=== PATIENT | female | born 1990 | race African-American/Black ===

== ENCOUNTER 2017-08-20 21:55 | Emergency (ER) | payer OTHER ==
[~2017-08-20 21:55] MED LIST: PREN29TA PO
--- NOTE | 2017-08-20 23:17 | PD ---
HPI Chief Complaint 39 weeks and 3 days Bloody, mucoid discharge 1 day Date Seen: Aug 20, 2017 Time Seen: 23:00 Travel History International Travel<30 Days: No Contact w/Intl Traveler<30Days: No Known Affected Area: No History of Present Illness HPI Pt is a 26 yo at 39 weeks and 3 days. Pt reports bloody mucoid discharge noted at about 21:00. Feels irregular contractions. Active movements. No fevers or chills. EDC 08-24-2017, care with Shae Leonard. h/o anemia. GBS negative. Weeks Gestation: 39 Para: 4 : 9 History Past Medical History Narrative Medical Anemia Obstetric History Obstetric History 4 prior term deliveries, vaginally Past Surgical History Surgical History: No Previous Surgery Family History Family History: Negative Social History Alcohol Use: No Tobacco Use: No Substance Abuse: No Allergies-Medications (Allergen,Severity, Reaction): Coded Allergies: latex (Unverified Allergy, Severe, Hives, 06/01/17) Home Meds Reported Medications Vit-Iron Carbonyl ( Plus Iron 29-1 mg) 1 Tab Tab, 1 TAB PO DAILY for Nutritional Supplement, #30 TAB 0 Refills 08/30/16 Review of Systems Except as stated in HPI: all other systems reviewed are Neg Physical Exam Narrative GENERAL: Well-nourished, well-developed patient. SKIN: Warm and dry. HEAD: Normocephalic and atraumatic. EYES: No scleral icterus. No injection or drainage. ENT: No nasal drainage noted. Mucous membranes pink. Airway patent. NECK: Supple, trachea midline. No JVD. CARDIOVASCULAR: Regular rate and rhythm without murmurs, gallops, or rubs. RESPIRATORY: Breath sounds equal bilaterally. No accessory muscle use. BREASTS: Bilateral exam showed no masses , no retractions, no nipple discharge. ABDOMEN/GI: Abdomen soft, non-tender, bowel sounds present, no rebound, no guarding Gravid to [39] weeks size Fundal Height: [39] GENITOURINARY: External Genitalia: intact and normal in appearance Cervix: [soft] NO BLOOD NOTED ON EXAMINING FINGER Dilatation: [1-2cm] Effacement: [60%] Station: [-2] Presentation: [vertex] Membranes: [intact] Uterine Contractions: [irregular] FHT's: Category: [Cat 1] Baseline: [130s] Reactive: [-] Variability: [moderate] Decels: [none] EXTREMITIES: No cyanosis or edema. BACK: Nontender without obvious deformity. No CVA tenderness. NEUROLOGICAL: Awake and alert. Motor and sensory grossly within normal limits. Five out of 5 muscle strength in all muscle groups. Normal speech. MDM Plan Pt is a 26 yo at 39 weeks and 3 days. Pt presents with h/o mucoid discharge, and has been traiged and found not to be in labor. No cervical change since last exam on 08/16/2017 Diagnosis Diagnosis: Primary Impression: with 39 completed weeks gestation Additional Impression: False labor Disposition: 01 DISCHARGE HOME Condition: Good Doug Carrasco MD Aug 20, 2017 23:17
== END 2017-08-20 23:20 | disposition home or self-care (01) ==
LOC: HOBED 21:55
DX: O47.1 False labor at or after 37 completed weeks of gestation (principal); Z3A.39 39 weeks gestation of pregnancy
CPT/HCPCS: 59025

== ENCOUNTER 2017-08-26 13:20 | Emergency (ER) | payer OTHER ==
[2017-08-26] MEDS ORDERED: LACTATED RINGER'S 1000 ML INJ 1,000 ML IV SCH (14:35)
--- NOTE | 2017-08-26 14:43 | PD ---
HPI Chief Complaint Syncope Date Seen: Aug 26, 2017 Time Seen: 14:00 Travel History International Travel<30 Days: No Contact w/Intl Traveler<30Days: No Known Affected Area: No History of Present Illness HPI Mrs. stokes is a 26-year-old G9. 4 at 30 weeks and 2 days presenting to the OB in with complaints of syncope. She states that roughly 2 hours ago after eating lunch she arose and walked across the room and while she was walking she suddenly felt weak and lightheaded and subsequently "passed out." She states that she felt her side, denying any head or abdominal trauma. She denies any musculoskeletal pain associated with the fall. She is unsure how long she was down, and isn't sure if she lost consciousness. Denies urinary or bowel incontinence during the episode. After her boyfriend helped her up, she drank some water and shortly thereafter vomited. She is currently complaining of a headache, nausea, and feeling weak. She states that she has a known history of iron deficiency anemia for which she takes iron both during and before . She states that while in middle school she had numerous syncopal episodes with no known diagnosis other than the anemia. She denies chest pain, shortness of breath, decreased movement, gush of fluid, vaginal bleeding. She is experiencing occasional contractions, but they are not regular with no shortening of the interval in between. Of note she is also complaining of a rash on her right arm. She states that last night she began to experience some discomfort in the right tricep area. When she awoke this morning there was a vesicular rash as well as pain in her right axilla. She describes the rash as burning and tingling in nature, with no bleeding or purulent discharge. She states that she is having a similar rash on her back during a prior in which she was treated with antibiotics. She states she did have chickenpox as a child. Weeks Gestation: 40 Para: 4 : 9 History Past Medical History Narrative Medical Iron deficiency anemia Syncopal episodes as adolescent Past Surgical History Narrative Surgical No surgical history Family History Narrative Family History Iron deficiency anemia in her mother Hypertension in her father Social History Narrative Social History Lives with her 4 children and denies alcohol tobacco or drug use Allergies-Medications (Allergen,Severity, Reaction): Coded Allergies: latex (Unverified Allergy, Severe, Hives, 06/01/17) Home Meds Active Scripts Ondansetron Odt (Ondansetron Odt) 4 Mg Tab, 4 MG SL Q6HR Y for Nausea/Vomiting, #6 TAB 0 Refills Prov:Subhash Miguel MD R1 08/26/17 Valacyclovir (Valacyclovir) 500 Mg Tab, 500 MG PO BID for Mgmt Viral Infection, #20 TAB 0 Refills Prov:Subhash Miguel MD R1 08/26/17 Reported Medications Vit-Iron Carbonyl ( Plus Iron 29-1 mg) 1 Tab Tab, 1 TAB PO DAILY for Nutritional Supplement, #30 TAB 0 Refills 08/30/16 Review of Systems General / Constitutional: No: Fever, Chills Eyes: No: Blurred Vision HENT: Headaches Cardiovascular: Syncope, No: Chest Pain or Discomfort, Palpitations Respiratory: No: Short of Breath Gastrointestinal: Nausea, Vomiting, No: Abdominal Pain Skin: Rash Neurologic: Weakness, Syncope Physical Exam Narrative GENERAL: Well-nourished, well-developed patient. SKIN: Warm and dry. 3 x 1 cm vesicular rash in a cluster on the right tricep area. Vesicles appear white with no purulent discharge or bleeding. Roughly 8 x 5 cm (approximately the size of a playing card) area of induration and erythema with mild hyperpigmentation surrounding the vesicular cluster. Rash is tender to palpation. Right axillary lymphadenopathy appreciated HEAD: Normocephalic and atraumatic. EYES: No scleral icterus. No injection or drainage. ENT: No nasal drainage noted. Mucous membranes pink. Airway patent. NECK: Supple, trachea midline. No JVD. CARDIOVASCULAR: Regular rate and rhythm without murmurs, gallops, or rubs. RESPIRATORY: Breath sounds equal bilaterally. No accessory muscle use. BREASTS: Bilateral exam showed no masses , no retractions, no nipple discharge. ABDOMEN/GI: Abdomen soft, non-tender, bowel sounds present, no rebound, no guarding Gravid to 40 weeks size GENITOURINARY: External Genitalia: intact and normal in appearance Cervix: Posterior Dilatation: 2 cm Effacement: Thick Station: -3 Membranes: Intact Uterine Contractions: Irregular, every 7-10 minutes FHT's: Category: II Baseline: 140 Reactive: nonreactive Variability: Minimal Decels: None EXTREMITIES: No cyanosis or edema. BACK: Nontender without obvious deformity. No CVA tenderness. NEUROLOGICAL: Awake and alert. Motor and sensory grossly within normal limits. Five out of 5 muscle strength in all muscle groups. Normal speech. MDM Interpretation(s) 26-year-old female at 40 weeks and 2 days presented to the ED with syncopal episode, also found to have vesicular rash as well as a category II tracing due to nonreactive strip. Plan 1. Syncope -Known history of iron deficiency anemia -CBC, CMP ordered, lactated Ringer's IV fluids -We'll monitor for now and follow-up labs 2. Category 2 tracing -Minimal variability, non-reactive strip -Giving IV fluids as described above -With patient being at 40 weeks and 2 days, will consider AROM and inducing labor if strip does not improve over the next several hours 3. Rash -Unknown etiology at this point. Could be viral or bacterial, but considering vesicular nature and patient's description of pain as well as known history of chickenpox - shingles is on the differential -CBC with differential ordered, will follow up Seen and discussed with Dr. Whelan Addendum: After 1 L of fluids, heart tracing improved markedly. Moderate variability , reactive strip with accelerations. Patient is tolerating contractions well. CBC showing no leukocytosis, mild anemia with hemoglobin of 10.8. Syncopal episode thought to be due to orthostatic hypotension versus IVC compression with no further workup needed at this time Discharging home with prescription for Zofran as well as Valtrex for what is likely shingles rash. Patient instructed to return to ED if rash worsens or systemic symptoms develop. Diagnosis Diagnosis: Primary Impression: syncope at 40 weeks gestation Additional Impression: Vesicular rash Disposition: 01 DISCHARGE HOME Condition: Good Scripts Ondansetron Odt (Ondansetron Odt) 4 Mg Tab 4 MG SL Q6HR Y for Nausea/Vomiting, #6 TAB 0 Refills Prov: Subhash Miguel MD R1 08/26/17 Valacyclovir (Valacyclovir) 500 Mg Tab 500 MG PO BID for Mgmt Viral Infection, #20 TAB 0 Refills Prov: Subhash Miguel MD R1 08/26/17 Subhash Miguel MD R1 Aug 26, 2017 14:43
[2017-08-26] MEDS ORDERED: ONDANSETRON HCL 4 MG/2 ML VIAL IV PUSH ONE (14:45)
[2017-08-26] MEDS ORDERED: ACETAMINOPHEN 325 MG TAB PO PRN (15:00)
[2017-08-26 15:32] LABS: AUTOMATED NEUTROPHIL # 6.4 TH/MM3 (1.8-7.7); BASOPHIL # 0.1 TH/MM3 (0-0.2); BASOPHIL % 0.6 % (0.0-2.0); EOSINOPHIL % 0.5 % (0.0-4.0); HEMATOCRIT 34.4 % (35.0-46.0); LYMPH % 26.3 % (9.0-44.0); LYMPHOCYTE # 2.6 TH/MM3 (1.0-4.8); MEAN CELL VOLUME 77.1 FL (80.0-100.0); MEAN CORPUSCULAR HEMOGLOBIN 24.3 PG (27.0-34.0); MEAN CORPUSCULAR HGB CONC 31.6 % (32.0-36.0); MONO % 6.3 % (0.0-8.0); NEUT % 66.3 % (16.0-70.0); PLATELET COUNT 195 TH/MM3 (150-450); RED BLOOD COUNT 4.46 MIL/MM3 (4.00-5.30); WHITE BLOOD COUNT 9.7 TH/MM3 (4.0-11.0)
[2017-08-26 15:34] LABS: HEMO FLAGS AUTO DIFF
[2017-08-26 15:40] LABS: BACTERIA, URINE OCC /hpf; BLOOD, URINE NEG (NEG); COMMENT (UR) CULT NOT INDICATED; CULTURE IF INDICATED CULT NOT INDICATED; GLUCOSE,URINE NEG (NEG); KETONE, URINE NEG (NEG); NITRITE,URINE NEG (NEG); PH, URINE 6.5 (5.0-8.5); SQUAMOUS EPITHELIAL CELL URINE 8 /hpf (0-5); URINE COLOR YELLOW (YELLW/STRAW)
[2017-08-26] MEDS ORDERED: VALA500T PO (15:48)
[2017-08-26] MEDS ORDERED: ONDA4TAB7 SL (15:48)
[2017-08-26 15:53] LABS: ALT (GPT) 19 U/L (10-53); ANION GAP 10 MEQ/L (5-15); AST (GOT) 26 U/L (15-37); BICARBONATE 23.2 MEQ/L (21.0-32.0); BLOOD UREA NITROGEN 5 MG/DL (7-18); CHLORIDE 104 MEQ/L (98-107); GLOMERULAR FILTRATION RATE 132 ML/MIN (>89); POTASSIUM 4.2 MEQ/L (3.5-5.1); SODIUM (NA) 137 MEQ/L (136-145)
[2017-08-26 15:55] LABS: ALKALINE PHOSPHATASE 218 U/L (45-117)
[2017-08-26 16:02] LABS: BANDS 1 % (0-6); METAMYELOCYTES 1 % (0-1); NEUTROPHIL # MANUAL DIFF 6.7 TH/MM3 (1.8-7.7); POLYS (SEG NEUTROPHILS) 66 % (16-70); PROMYELOCYTES 1 % (0-0); WBC DIFF SAMPLE 100
[2017-08-26 16:03] LABS: SCAN/DIFF FINAL DIFF MANUAL
[2017-08-31 13:58] LABS: BATH SALTS (MDPV) UR NEG (NEG); ECSTASY (MDMA) UR NEG (NEG); HEROIN (6-ACETYLMORPHINE) UR NEG (NEG); K2 SPICE UR NEG (NEG); OBGABAPENTIN UR NEG (NEG); OBMETHADONE UR NEG (NEG); PHENCYCLIDINE URINE NEG (NEG)
[2017-08-31 13:59] LABS: OBHYDROMORPHONE U NEG (NEG)
== END 2017-08-26 16:18 | disposition home or self-care (01) ==
LOC: HOBED 13:20
DX: O99.013 Anemia complicating pregnancy, third trimester (principal); D50.9 Iron deficiency anemia, unspecified; R55 Syncope and collapse; R21 Rash and other nonspecific skin eruption; Z3A.40 40 weeks gestation of pregnancy
CPT/HCPCS: 59025; 80053; 80307; 81001; 85007; 85027; 96361; 96374; G0481; J2405; J7120

== ENCOUNTER 2017-08-27 13:52 | Inpatient (IN) | payer OTHER ==
[2017-08-27] VITALS (73 sets, daily range): BP systolic 98–144; BP diastolic 37–85; PULSE 73–134; RESP 16–18; TEMP 97.7–98.8; O2SAT 100
[~2017-08-27 13:52] MED LIST changes: +ONDA4TAB7 SL; +VALA500T PO
[2017-08-27] MEDS ORDERED: LACTATED RINGER'S 1000 ML INJ 1,000 ML IV PRN (14:32)
[2017-08-27] MEDS ORDERED: LACTATED RINGER'S 1000 ML INJ 1,000 ML IV SCH (14:32)
[2017-08-27] MEDS ORDERED: MINERAL OIL 10 ML VIAL TOPICAL PRN (14:45)
[2017-08-27] MEDS ORDERED: LIDOCAINE HCL 1% 50 ML VIAL I-DERMAL PRN (14:45)
[2017-08-27] MEDS ORDERED: SODIUM CHLORID 0.9% 500 ML INJ 500 ML IV PRN (14:45)
[2017-08-27] MEDS ORDERED: LIDOCAINE HCL 1% 50 ML VIAL INFIL PRN (14:45)
[2017-08-27] MEDS ORDERED: OXYTOCIN 30 UNITS-500ML PREMIX 500 ML IV ONE (14:45)
[2017-08-27] MEDS ORDERED: CITRIC ACID-SODIUM CITRATE LIQ 30 ML UDC PO SCH (14:45)
[2017-08-27] MEDS ORDERED: ONDANSETRON HCL 4 MG/2 ML VIAL IV PUSH PRN (14:45)
[2017-08-27] MEDS ORDERED: SODIUM CHLOR 0.9% 1000 ML INJ 1,000 ML IV PRN (14:52)
--- NOTE | 2017-08-27 14:52 | HHI.HP ---
History & Physical H&P HPI HPI Chief Complaint Contractions Date Seen: Aug 27, 2017 Time Seen: 14:36 Travel History International Travel<30 Days: No Contact w/Intl Traveler<30Days: No Known Affected Area: No History of Present Illness HPI 26-year-old 9 para 4 SAB 4 at 40 weeks 3 days gestation who notes contractions increasing throughout the day. She denies leakage of fluid or bleeding. Weeks Gestation: 40 Para: 4 : 9 Miscarriage: 4 : 0 History (Limited) History Past Medical History Narrative Medical The patient was diagnosed with shingles yesterday and has been on Valtrex 500 mg twice a day Obstetric History Obstetric History 4 vaginal deliveries ,largest 8 1/2 pounds care with Shae Leonard. She reports no complications. Past Surgical History Surgical History: No Previous Surgery Family History Family History: Negative Social History Alcohol Use: No Tobacco Use: No Substance Abuse: No Allergies-Medications Allergies-Medications (Allergen,Severity, Reaction): Coded Allergies: latex (Unverified Allergy, Severe, Hives, 06/01/17) Home Meds Active Scripts Ondansetron Odt (Ondansetron Odt) 4 Mg Tab, 4 MG SL Q6HR Y for Nausea/Vomiting, #6 TAB 0 Refills Prov:Subhash Miguel MD R1 08/26/17 Valacyclovir (Valacyclovir) 500 Mg Tab, 500 MG PO BID for Mgmt Viral Infection, #20 TAB 0 Refills Prov:Subhash Miguel MD R1 08/26/17 Reported Medications Vit-Iron Carbonyl ( Plus Iron 29-1 mg) 1 Tab Tab, 1 TAB PO DAILY for Nutritional Supplement, #30 TAB 0 Refills 08/30/16 ROS Review of Systems Except as stated in HPI: all other systems reviewed are Neg Physical Exam Physical Exam Narrative GENERAL: Well-nourished, well-developed patient. SKIN: Warm and dry. HEAD: Normocephalic and atraumatic. EYES: No scleral icterus. No injection or drainage. ENT: No nasal drainage noted. Mucous membranes pink. Airway patent. NECK: Supple, trachea midline. No JVD. CARDIOVASCULAR: Regular rate and rhythm without murmurs, gallops, or rubs. RESPIRATORY: Breath sounds equal bilaterally. No accessory muscle use. BREASTS: Bilateral exam showed no masses , no retractions, no nipple discharge. ABDOMEN/GI: Abdomen soft, non-tender, bowel sounds present, no rebound, no guarding Gravid to [-] weeks size Fundal Height: [-39] GENITOURINARY: External Genitalia: intact and normal in appearance BUS glands: [Negative-] Cervix: [-] Dilatation: [4-] Effacement: [-70] Station: [--2] Presentation: [vtx-] Membranes: [intact] Uterine Contractions: [-] FHT's: Category: [2-] Baseline: [150-] Reactive: [-No] Variability: [-] Decels: [-] EXTREMITIES: No cyanosis or edema. Small pustular area in the right tricep BACK: Nontender without obvious deformity. No CVA tenderness. NEUROLOGICAL: Awake and alert. Motor and sensory grossly within normal limits. Five out of 5 muscle strength in all muscle groups. Normal speech. Data Data Data Vital Signs Reviewed: Yes Orders Orders Ob (2e) Additional Admit Info (08/27/17 14:31) Admit To Inpatient (08/27/17 ) Code Status (08/27/17 14:32) Vital Signs (Adult) .Per protocol (08/27/17 14:32) Activity Oob Ad Sarita (08/27/17 14:32) Heart (08/27/17 14:32) Amnioinfusion (08/27/17 14:32) Urinary Catheter Management .ONCE (08/27/17 14:32) Lactated Ringer's 1000 Ml Inj (Lr 1000 M (08/27/17 14:32) Lactated Ringer's 1000 Ml Inj (Lr 1000 M (08/27/17 14:32) Sodium Chlorid 0.9% 500 Ml Inj (Ns 500 M (08/27/17 14:45) Sodium Chlor 0.9% 1000 Ml Inj (Ns 1000 M (08/27/17 14:52) Lidocaine 1% Inj (50 Ml) (Xylocaine 1% I (08/27/17 14:45) Citric Acid-Sodium Citrate Liq (Bicitra (08/27/17 14:45) Ondansetron Inj (Zofran Inj) (08/27/17 14:45) Fentanyl Inj (Fentanyl Inj) (08/27/17 14:45) Fentanyl Inj (Fentanyl Inj) (08/27/17 14:45) Complete Blood Count With Diff (08/27/17 14:32) Hold Clot (08/27/17 14:32) Abo/Rh Blood Type (08/27/17 14:32) Drug Screen, Random Urine (08/27/17 14:32) Resp Oxygen Non Rebreathe Mask (08/27/17 ) ^ Epidural / Intrathecal Infus (08/27/17 14:32) Oxytocin 30 Units-500ml Premix (Pitocin (08/27/17 14:45) Lidocaine 1% Inj (50 Ml) (Xylocaine 1% I (08/27/17 14:45) Light Mineral Oil (Muri-Lube Oil) (08/27/17 14:45) Inpatient Certification (08/27/17 ) Isolation (08/27/17 14:32) Group B Strep: Negative Labs Rh+, rubella non-immune, RPR nonreactive, HIV negative, hepatitis B surface antigen negative 36 week hemoglobin 9.1 Original Chlamydia positive with test of cure negative GC negative Group B strep negative MDM MDM Medical Record Reviewed: Yes Narrative Course / MDM Assessment: Grand multiparous female at 40+ weeks' gestation in early active labor, #2 anemia, #3 recent diagnosis of shingles Plan: Admit for labor management, contact precautions/isolation Jayro Gonzalez MD Aug 27, 2017 14:51 Jayro Gonzalez MD Aug 27, 2017 14:52
[2017-08-27 15:25] LABS: AUTOMATED NEUTROPHIL # 6.8 TH/MM3 (1.8-7.7); BASOPHIL % 0.2 % (0.0-2.0); EOSINOPHIL % 0.1 % (0.0-4.0); HEMATOCRIT 32.4 % (35.0-46.0); HEMO FLAGS DIFF FINAL; LYMPH % 31.5 % (9.0-44.0); LYMPHOCYTE # 3.4 TH/MM3 (1.0-4.8); MEAN CELL VOLUME 76.6 FL (80.0-100.0); MEAN CORPUSCULAR HEMOGLOBIN 24.7 PG (27.0-34.0); MEAN CORPUSCULAR HGB CONC 32.2 % (32.0-36.0); NEUT % 62.2 % (16.0-70.0); PLATELET COUNT 201 TH/MM3 (150-450); RED BLOOD COUNT 4.23 MIL/MM3 (4.00-5.30); WHITE BLOOD COUNT 10.9 TH/MM3 (4.0-11.0)
[2017-08-27] MEDS ORDERED: fentaNYL 2MCG-BUPIV 0.125% INJ 100 ML ONE (15:45)
[2017-08-27] MEDS ORDERED: ePHEDrine/NS 25 MG/5 ML SYR ONE (15:45)
[2017-08-27] MEDS ORDERED: DIPHTH/TETANUS/ACEL PERTUSSIS (BOOSTER) 0.5 ML VIAL/PFS IM ONE (16:00)
[2017-08-27] MEDS ORDERED: MEASLES, MUMPS, RUBELLA VACCINE 0.5 ML VIAL SQ ONE (16:00)
[2017-08-27] MEDS ORDERED: NO SYSTEM NARCOTICS PRN (19:30)
[2017-08-27] MEDS ORDERED: fentaNYL 2MCG-BUPIV 0.125% 100 ML EPIDURAL SCH (19:30)
[2017-08-27] MEDS ORDERED: ePHEDrine/NS 25 MG/5 ML SYR IV PUSH PRN (19:30)
[2017-08-27] MEDS ORDERED: DO NOT ADMINISTER ANTICOAGULANTS PRN (19:30)
--- NOTE | 2017-08-27 19:56 | PD.OB.DELI ---
Weeks gestation: 40 Gest age assessed date: Aug 27, 2017 Gest age assessed time: 19:53 Pt started active labor?: Yes Active labor start date: Aug 27, 2017 Active labor start time: 14:00 Medical induction of labor?: No Artificial rupture of membrane: Yes Artificial ROM date: Aug 27, 2017 Artifical ROM time: 18:00 Anesthesia: Epidural Episiotomy: None Vaginal Delivery: Normal Presentation: Occiput anterior Nuchal Cord: None Delayed cord clamping (45 sec): Yes Infant: Male Delivery date: Aug 27, 2017 Delivery time: 19:40 One Minute : 8 Five Minute : 9 Weight: 9 lbs. 5 oz. Placenta: Spontaneous delivery Laceration: No lacerations Estimated blood loss: 150 Additional Information The patient pushed with one contraction to deliver the OA vertex over an intact perineum. There was no delay for the shoulders which were delivered by maternal effort and gentle downward traction. The remainder the followed easily and the baby was passed to the maternal abdomen where delayed cord clamping was accomplished. The infant was crying vigorously and Apgars of 8 and 9 were assigned. Cord blood sample was obtained. The placenta passed spontaneously. It was grossly normal and apparently intact. Hemostasis was obtained with massage and IV Pitocin solution. Jayro Gonzalez MD Aug 27, 2017 19:56
[2017-08-27] MEDS ORDERED: BENZOCAINE 20% TOPICAL SPRAY 60 ML CAN TOPICAL PRN (20:00)
[2017-08-27] MEDS ORDERED: WITCH HAZEL 50%/GLYCERIN 12.5% 40 PAD JAR TOPICAL PRN (20:00)
[2017-08-27] MEDS ORDERED: ALUMINUM/MAGNESIUM/SIMETH 30 ML CUP PO PRN (20:00)
[2017-08-27] MEDS ORDERED: ZOLPIDEM TARTRATE 5 MG TAB PO PRN (20:00)
[2017-08-27] MEDS ORDERED: OXYTOCIN 30 UNITS-500ML PREMIX 500 ML IV SCH (20:00)
[2017-08-27] MEDS ORDERED: ONDANSETRON ODT 4 MG TAB PO PRN (20:00)
[2017-08-27] MEDS: IBUPROFEN 600 MG TAB PO PRN (21:17)
[2017-08-27] MEDS: valACYclovir HCL 500 MG TAB PO SCH (23:36)
[2017-08-27] MEDS: DOCUSATE SODIUM 50 MG/SENNA 8.6 MG TAB PO PRN (23:45)
[2017-08-28] VITALS: BP 111/59; PULSE 91; RESP 18; TEMP 98.8
[2017-08-28 00:15] VITALS: BP 113/61; PULSE 91
[2017-08-28 02:00] VITALS: BP 108/68; PULSE 65; RESP 18; TEMP 98
--- NOTE | 2017-08-28 08:21 | HHI.OB ---
Subjective Post Day: 1 Remarks Pt seen and examined this morning. day # 1 AFVSS overnight. Decreased lochia. Denies dysuria. No breast tenderness. She is feeding the baby via breast. Appetite good. No nausea or vomiting. Patient has not yet had a bowel movement, but does endorse bowel gas. Ambulating well. Denies calf pain or shortness of breath. Otherwise, she is doing well this morning and has no other concerns. (Haider Shabazz MD R2) Remarks Patient seen and evaluated with resident under direct supervision, agree with assessment and plan. (Jayro Gonzalez MD) Objective Vitals/I&O Vital Signs Date Time Temp Pulse Resp B/P (MAP) Pulse Ox O2 Delivery O2 Flow Rate FiO2 08/28/17 02:00 98.0 65 18 108/68 (81) 08/28/17 00:15 91 113/61 (78) 08/28/17 00:00 91 18 111/59 (76) 08/28/17 00:00 98.8 08/27/17 23:46 110/51 (70) 08/27/17 23:46 91 08/27/17 23:31 85 103/48 (66) 08/27/17 23:30 18 08/27/17 23:16 89 101/84 (90) 08/27/17 23:00 89 119/76 (90) 08/27/17 22:45 83 111/68 (82) 08/27/17 22:31 78 106/68 (81) 08/27/17 22:30 18 08/27/17 22:15 82 08/27/17 22:15 116/65 (82) 08/27/17 22:00 18 08/27/17 22:00 79 114/68 (83) 08/27/17 21:45 77 112/73 (86) 08/27/17 21:30 83 112/85 (94) 08/27/17 21:15 86 120/68 (85) 08/27/17 21:01 88 118/75 (89) 08/27/17 21:00 18 08/27/17 20:45 95 18 120/83 (95) 08/27/17 20:30 99 107/78 (88) 08/27/17 20:30 18 11/10/17 20:15 100 121/73 (89) 08/27/17 20:00 91 100/79 (86) 08/27/17 20:00 97.7 18 08/27/17 19:45 134 106/74 (85) 08/27/17 19:45 100 08/27/17 19:40 103 08/27/17 19:40 100 08/27/17 19:35 108 08/27/17 19:30 110/75 (87) 08/27/17 19:25 97 08/27/17 19:25 100 08/27/17 19:20 93 08/27/17 19:15 112/74 (87) 08/27/17 19:15 97.8 08/27/17 19:10 97 08/27/17 19:10 100 08/27/17 19:05 91 18 08/27/17 19:00 98/84 (89) 08/27/17 18:57 16 08/27/17 18:50 105 08/27/17 18:45 90 109/75 (86) 08/27/17 18:45 94 08/27/17 18:40 94 08/27/17 18:35 98 08/27/17 18:30 101 08/27/17 18:30 96 119/80 (93) 08/27/17 18:30 16 08/27/17 18:25 97 08/27/17 18:20 101 08/27/17 18:15 73 08/27/17 18:15 98 111/85 (94) 08/27/17 18:10 96 08/27/17 18:05 95 08/27/17 18:00 115 113/73 (86) 08/27/17 18:00 98.8 16 08/27/17 18:00 110 08/27/17 17:55 112 08/27/17 17:50 89 08/27/17 17:45 88 08/27/17 17:45 88 116/74 (88) 08/27/17 17:40 93 08/27/17 17:35 90 08/27/17 17:30 90 16 107/69 (82) 08/27/17 17:30 90 08/27/17 17:25 89 08/27/17 17:20 96 08/27/17 17:15 82 08/27/17 17:15 93 103/69 (80) 08/27/17 17:10 91 08/27/17 17:05 90 08/27/17 17:00 88 108/68 (81) 08/27/17 17:00 95 08/27/17 17:00 98.5 08/27/17 17:00 16 08/27/17 16:55 90 08/27/17 16:50 91 08/27/17 16:45 97 144/65 (91) 08/27/17 16:45 119 08/27/17 16:40 93 08/27/17 16:40 96 123/72 (89) 08/27/17 16:35 89 08/27/17 16:35 97 116/71 (86) 08/27/17 16:30 98.4 16 08/27/17 16:30 98 08/27/17 16:30 103 119/73 (88) 08/27/17 16:25 101 118/68 (85) 08/27/17 16:25 105 08/27/17 16:22 100 110/73 (85) 08/27/17 16:20 94 08/27/17 16:15 102 121/73 (89) 08/27/17 16:15 99 08/27/17 16:14 98 123/83 (96) 08/27/17 16:10 103 08/27/17 16:05 100 08/27/17 16:00 101 08/27/17 15:45 16 08/27/17 15:40 90 08/27/17 15:35 104 08/27/17 15:33 92 107/37 (60) 08/27/17 15:30 92 08/27/17 15:00 16 Objective Remarks GENERAL: Well-nourished, well-developed patient. CARDIOVASCULAR: Regular rate and rhythm without murmurs, gallops, or rubs. RESPIRATORY: Breath sounds equal bilaterally. No accessory muscle use. ABDOMEN/GI: Abdomen soft, non-tender. Fundus: Firm, non-tender at umbilicus. GENITOURINARY: Light to moderate bleeding. EXTREMITIES: No cyanosis or edema, non-tender, without signs of DVT. Medications and IVs Current Medications Medications (Trade) Dose Ordered Sig/Tre Route Start Time Stop Time Status Last Admin Lactated Ringer's 1,000 ml @ 3,000 mls/hr Q20M PRN IV 08/27/17 14:32 Sodium Chloride 500 ml @ 1,000 mls/hr ONCE PRN IV 08/27/17 14:45 08/28/17 23:59 Sodium Chloride 1,000 ml @ 100 mls/hr Q10H PRN IV 08/27/17 14:52 (Xylocaine 1% Inj (50 ml)) 0.1 ml UNSCH X1 PRN I-DERMAL 08/27/17 14:45 08/30/17 14:44 (Bicitra Liq) 30 ml [employer] PO 08/27/17 14:45 08/31/17 14:44 08/27/17 19:03 (fentaNYL INJ) 50 mcg Q1H PRN IV PUSH 08/27/17 14:45 (Xylocaine 1% Inj (50 ml)) 10 ml UNSCH X1 PRN INFIL 08/27/17 14:45 08/29/17 14:44 (Muri-Lube Oil) 10 ml UNSCH PRN TOPICAL 08/27/17 14:45 Miscellaneous Information No systemic narcotics to be given except... UNSCH PRN .XX 08/27/17 19:30 08/28/17 19:29 Miscellaneous Information DO NOT ADMINISTER ANY ANTICOAGUL... UNSCH PRN .XX 08/27/17 19:30 08/28/17 19:29 Fentanyl/ Bupivacaine HCl 100 ml @ 0 mls/hr TITRATE EPIDURAL 08/27/17 19:30 (ePHEDrine/NS 25 MG/5 ML SYR) 10 mg UNSCH PRN IV PUSH 08/27/17 19:30 08/28/17 19:29 (Tylenol) 650 mg Q4H PRN PO 08/27/17 20:00 (Motrin) 600 mg Q6H PRN PO 08/27/17 20:00 08/27/17 21:17 (Americaine 20% Top Spr) 1 spray Q4H PRN TOPICAL 08/27/17 20:00 (Tucks Pads) 1 applic QID PRN TOPICAL 08/27/17 20:00 (Dorie-Colace) 2 tab Q12H PRN PO 08/27/17 20:00 08/27/17 23:45 (Ambien) 5 mg HS PRN PO 08/27/17 20:00 (Mag-Al Plus Susp Liq) 15 ml Q8H PRN PO 08/27/17 20:00 08/27/17 23:45 (Zofran Odt) 4 mg Q6H PRN PO 08/27/17 20:00 (Valtrex) 500 mg BID PO 08/27/17 23:00 08/27/17 23:36 (Haider Shabazz MD R2) Assessment/Plan Problem List: (1) (spontaneous vaginal delivery) ICD Codes: O80 - Encounter for full-term uncomplicated delivery Status: Acute (2) Shingles ICD Codes: B02.9 - Zoster without complications Status: Acute Assessment and Plan 26 y/o female who is day # 1 s/p . 1. -Continue routine care. -Percocet and Motrin PRN pain. -Encouraged OOB. Advised pelvic rest for 6 wks. -Re: ctrl, she would like to discuss her options at her follow-up appointment. -Anticipate discharge tomorrow, 08/29. 2. Shingles -Continue Valtrex for shingles on the right upper extremity -Pediatric team notified dw Dr. Carlos MD Discharge Planning Anticipate discharge tomorrow, 08/29 (Haider Shabazz MD R2) Haider Shabazz MD R2 Aug 28, 2017 08:21 Jayro Gonzalez MD Aug 29, 2017 09:59
[2017-08-28 08:30] VITALS: BP 115/63; PULSE 74; RESP 18; TEMP 97.9
[2017-08-28] MEDS: valACYclovir HCL 500 MG TAB PO SCH ×2 (08:48→20:26)
[2017-08-28] MEDS ORDERED: PERI PO (09:14)
[2017-08-28] MEDS ORDERED: IBUP-232 PO (09:14)
--- NOTE | 2017-08-28 09:14 | HHI.DCPOC ---
Discharge Care Plan Diagnosis: (1) (spontaneous vaginal delivery) (2) Shingles Report Symptoms to Your Doctor -Temperature above 100.5 degrees -Redness, of incision or excessive or foul smelling drainage -Unusual pain or calf pain -Increased vaginal bleeding -Painful or difficulty urinating -Feelings of extreme sadness or anxiety after 2 weeks Goals to Promote Your Health * To prevent worsening of your condition and complications * To maintain your health at the optimal level Directions to Meet Your Goals Take your medications as prescribed Follow your dietary instruction Follow activity as directed Ensure plenty of rest for recovery Drink fluids for hydration Keep your appointments as scheduled Take your immunizations and boosters as scheduled If your symptoms worsen call your PCP, if no PCP go to Urgent Care Center or Emergency Room Smoking is Dangerous to Your Health. Avoid second hand smoke Call the 24-hour crisis hotline for domestic abuse at Haider Shabazz MD R2 Aug 28, 2017 09:14
[2017-08-28] MEDS: IBUPROFEN 600 MG TAB PO PRN ×2 (10:28→16:41)
[2017-08-28] MEDS: DOCUSATE SODIUM 50 MG/SENNA 8.6 MG TAB PO PRN (16:41)
[2017-08-28] MEDS: ACETAMINOPHEN 325 MG TAB PO PRN ×2 (16:41→20:26)
[2017-08-28 20:30] VITALS: BP 111/70; PULSE 94; RESP 22; TEMP 98.3
--- NOTE | 2017-08-29 06:32 | HHI.OB ---
Subjective Post Day: 2 Remarks Pt seen and examined this morning. day # 1 AFVSS overnight. Decreased lochia. Denies dysuria. No breast tenderness. She is feeding the baby via breast. Appetite good. No nausea or vomiting. Patient has not yet had a bowel movement, but does endorse bowel gas. Ambulating well. Denies calf pain or shortness of breath. Otherwise, she is doing well this morning and has no other concerns. Objective Vitals/I&O Vital Signs Date Time Temp Pulse Resp B/P (MAP) Pulse Ox O2 Delivery O2 Flow Rate FiO2 08/28/17 20:30 98.3 94 22 111/70 (84) 08/28/17 08:30 115/63 (80) 08/28/17 08:30 97.9 74 18 Objective Remarks GENERAL: Well-nourished, well-developed patient. CARDIOVASCULAR: Regular rate and rhythm without murmurs, gallops, or rubs. RESPIRATORY: Breath sounds equal bilaterally. No accessory muscle use. ABDOMEN/GI: Abdomen soft, non-tender. Fundus: Firm, non-tender at umbilicus. GENITOURINARY: Light to moderate bleeding. EXTREMITIES: No cyanosis or edema, non-tender, without signs of DVT. Medications and IVs Current Medications Medications (Trade) Dose Ordered Sig/Tre Route Start Time Stop Time Status Last Admin Lactated Ringer's 1,000 ml @ 3,000 mls/hr Q20M PRN IV 08/27/17 14:32 Sodium Chloride 1,000 ml @ 100 mls/hr Q10H PRN IV 08/27/17 14:52 (Xylocaine 1% Inj (50 ml)) 0.1 ml UNSCH X1 PRN I-DERMAL 08/27/17 14:45 08/30/17 14:44 (Bicitra Liq) 30 ml NEW [employer] DEL[employer]IVER PO 08/27/17 14:45 08/31/17 14:44 08/27/17 19:03 (fentaNYL INJ) 50 mcg Q1H PRN IV PUSH 08/27/17 14:45 (Xylocaine 1% Inj (50 ml)) 10 ml UNSCH X1 PRN INFIL 08/27/17 14:45 08/29/17 14:44 (Muri-Lube Oil) 10 ml UNSCH PRN TOPICAL 08/27/17 14:45 Fentanyl/ Bupivacaine HCl 100 ml @ 0 mls/hr TITRATE EPIDURAL 08/27/17 19:30 (Tylenol) 650 mg Q4H PRN PO 08/27/17 20:00 08/28/17 20:26 (Motrin) 600 mg Q6H PRN PO 08/27/17 20:00 08/28/17 16:41 (Americaine 20% Top Spr) 1 spray Q4H PRN TOPICAL 08/27/17 20:00 (Tucks Pads) 1 applic QID PRN TOPICAL 08/27/17 20:00 (Dorie-Colace) 2 tab Q12H PRN PO 08/27/17 20:00 08/28/17 16:41 (Ambien) 5 mg HS PRN PO 08/27/17 20:00 (Mag-Al Plus Susp Liq) 15 ml Q8H PRN PO 08/27/17 20:00 08/27/17 23:45 (Zofran Odt) 4 mg Q6H PRN PO 08/27/17 20:00 (Valtrex) 500 mg BID PO 08/27/17 23:00 08/28/17 20:26 Assessment/Plan Problem List: (1) (spontaneous vaginal delivery) ICD Codes: O80 - Encounter for full-term uncomplicated delivery Status: Acute (2) Shingles ICD Codes: B02.9 - Zoster without complications Status: Acute Assessment and Plan 26 y/o female who is day # 2 s/p . 1. -Continue routine care. -Motrin PRN pain. -Encouraged OOB. Advised pelvic rest for 6 wks. -Re: ctrl, she would like the Depo-Provera injection, orders placed. -Anticipate discharge today, 08/29. 2. Shingles -Continue Valtrex for shingles on the right upper extremity -Pediatric team notified dw Dr. Luna MD Discharge Planning Anticipate discharge today, 08/29 Haider Shabazz MD R2 Aug 29, 2017 06:32
[2017-08-29] MEDS ORDERED: medroxyPROGESTERone ACETATE SUSP 150 MG/ML SYRINGE IM ONE (07:00)
[2017-08-29 07:29] VITALS: BP 114/72; PULSE 81; RESP 15; TEMP 98
[2017-08-29] MEDS: valACYclovir HCL 500 MG TAB PO SCH (08:21)
[2017-08-29] MEDS: ACETAMINOPHEN 325 MG TAB PO PRN (08:22)
[2017-08-29] MEDS: DOCUSATE SODIUM 50 MG/SENNA 8.6 MG TAB PO PRN (08:22)
[2017-08-29] MEDS: IBUPROFEN 600 MG TAB PO PRN (08:22)
== END 2017-08-29 11:50 | disposition home or self-care (01) | DRG 774 ==
LOC: HOBED 13:52 → H2EB 14:39 → H1EA 08-28 00:53
PROVIDERS: ADMIT Obstetrics & Gynecology; ATTEND Obstetrics & Gynecology
PROC: 10E0XZZ Delivery of Products of Conception, External Approach (ICD-10-PCS; principal; 2017-08-27)
PROC: 00HU33Z Insertion of Infusion Device into Spinal Canal, Percutaneous Approach (ICD-10-PCS; 2017-08-27)
PROC: 3E0R3BZ Introduction of Anesthetic Agent into Spinal Canal, Percutaneous Approach (ICD-10-PCS; 2017-08-27)
PROC: 3E0P3VZ Introduction of Hormone into Female Reproductive, Percutaneous Approach (ICD-10-PCS; 2017-08-27)
DX: O98.52 Other viral diseases complicating childbirth (principal); B02.9 Zoster without complications; Z37.0 Single live birth; Z3A.40 40 weeks gestation of pregnancy; O99.02 Anemia complicating childbirth; D64.9 Anemia, unspecified
CPT/HCPCS: 80053; 80307; 81001; 85007; 85025; 85027; 86900; 86901; G0481; J1050; J2405; J2590; J7120

== ENCOUNTER 2018-01-10 06:13 | Emergency (ER) | payer OTHER ==
[~2018-01-10] VITALS: Ht 162.6 cm; Wt 80.0 kg
[~2018-01-10 06:13] MED LIST changes: +IBUP-232 PO; +PERI PO
[2018-01-10 06:25] VITALS: BP 130/64; PULSE 76; RESP 18; TEMP 97.5; O2SAT 100
--- NOTE | 2018-01-10 07:40 | PD ---
HPI . Headache Chief Complaint: Headache Time Seen by Provider: 07:26 Travel History International Travel<30 days: No Contact w/Intl Traveler<30days: No Traveled to known affect area: No History of Present Illness HPI Patient presents complaining with the acute onset of a headache. It started this morning. She states that she stood up and her pain became acutely worse. She states that it is associated with dizziness, nausea and vomiting. She states that it caused her to fall. She subsequently presented to us for evaluation. [facility] Past Medical History Anemia: Yes Diminished Hearing: No Headaches: Yes Immunizations Current: Yes Migraines: Yes ?: Not LMP: 01/05/18 : 3 Para: 3 Miscarriage: 0 : 0 Past Surgical History Surgical History: No Previous Surgery Social History Alcohol Use: Yes Tobacco Use: No Substance Use: No Allergies-Medications (Allergen,Severity, Reaction): Coded Allergies: latex (Verified Allergy, Severe, Hives, 01/10/18) Reported Meds & Prescriptions Reported Meds & Active Scripts Active No Active Prescriptions or Reported Medications Review of Systems HENT: Positive: Headaches, Lightheadedness Gastrointestinal: Positive: Nausea, Vomiting Physical Exam Narrative GENERAL: Awake and alert and in no acute distress. SKIN: Warm and dry. HEAD: Normocephalic/atraumatic. NECK: Normal range of motion. CARDIOVASCULAR: Regular rate and rhythm. RESPIRATORY: Nonlabored respirations. MUSCULOSKELETAL: Atraumatic. NEUROLOGICAL: Nonfocal. PSYCHIATRIC: Appropriate mood and affect. Data Data Last Documented VS Vital Signs Date Time Temp Pulse Resp B/P (MAP) Pulse Ox O2 Delivery O2 Flow Rate FiO2 01/10/18 06:25 97.5 76 18 130/64 (86) 100 MDM Medical Decision Making Medical Screen Exam Complete: Yes Emergency Medical Condition: Yes Differential Diagnosis Differential diagnosis of headache includes but is not limited to migraine, muscle contraction headache, brain tumor, brain bleed Narrative Course This patient presented with a chief complaint of a headache. The patient immediately stated that she had to go to take care of her children. Diagnosis Primary Impression: Headache Qualified Codes: R51 - Headache Scripts No Active Prescriptions or Reported Meds Disposition: 07 AGAINST MEDICAL ADVICE Condition: Stable Sheela Sutton MD Jan 10, 2018 07:40
== END 2018-01-10 07:35 | disposition left against medical advice (07) ==
LOC: NEPC 06:13
DX: R51 Headache (principal); D64.9 Anemia, unspecified
CPT/HCPCS: 99281

== ENCOUNTER 2018-02-01 22:10 | Emergency (ER) | payer SELFPAY ==
[~2018-02-01] VITALS: Ht 162.6 cm; Wt 84.0 kg
[2018-02-01 23:08] VITALS: BP 115/77; PULSE 71; RESP 18; TEMP 97.8; O2SAT 100
--- NOTE | 2018-02-02 00:32 | RADRPT ---
EXAM DATE/TIME: 02/02/2018 00:21 [place] COMPARISON: No previous studies available for comparison. INDICATIONS : Left medial wrist pain after falling at work today. MEDICAL HISTORY : None. SURGICAL HISTORY : None. ENCOUNTER: Initial ACUITY: 1 day PAIN SCORE: 6/10 LOCATION: Left wrist FINDINGS: Three view examination of the left wrist demonstrates no soft tissue swelling, dislocation, or fractu re. The carpal bones are in normal alignment. The joint spaces are maintained. Bony mineralization is normal. CONCLUSION: Intact left wrist. Phuc Stephens MD on February 02, 2018 at 0:30 Board Certified Radiologist. This report was verified electronically.
[2018-02-02] MEDS ORDERED: DICL75TA PO (01:10)
[2018-02-02] MEDS ORDERED: NAPROXEN 500 MG TAB PO ONE (01:15)
--- NOTE | 2018-02-02 01:15 | PD ---
HPI Chief Complaint: Injury Time Seen by Provider: 01:05 Travel History International Travel<30 days: No Contact w/Intl Traveler<30days: No Traveled to known affect area: No History of Present Illness HPI 27-year-old right-hand dominant black female presents emergency department with complaints of left wrist pain after a trip and fall at work this evening. 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 She fell at work onto her left hand which flexed at the wrist. She states that she is having pain with movement. She denies any numbness, tingling or weakness. No injury to her head, neck or back. Symptoms are moderate. Worse with movement. No alleviating factors. PFSH Past Medical History Anemia: Yes Diminished Hearing: No Headaches: Yes Immunizations Current: Yes Migraines: Yes Tetanus Vaccination: < 5 Years Influenza Vaccination: No ?: Not LMP: 02/01/2018 : 3 Para: 3 Miscarriage: 0 : 0 Past Surgical History Surgical History: No Previous Surgery Social History Alcohol Use: Yes (socially) Tobacco Use: No Substance Use: No Allergies-Medications (Allergen,Severity, Reaction): Coded Allergies: latex (Verified Allergy, Severe, Hives, 02/01/18) Reported Meds & Prescriptions Reported Meds & Active Scripts Active Diclofenac Sodium DR (Diclofenac Sodium) 75 Mg Tabdr 75 Mg PO BID Review of Systems General / Constitutional: No: Fever Eyes: No: Visual changes HENT: No: Headaches, Neck Stiffness, Neck Pain Cardiovascular: No: Chest Pain or Discomfort Respiratory: No: Shortness of Breath Gastrointestinal: No: Abdominal Pain Genitourinary: No: Dysuria Musculoskeletal: Positive: Arthralgias, Limited ROM, Pain (Left wrist), No: Weakness, Edema Skin: No Rash Neurologic: No: Weakness Psychiatric: No: Depression Endocrine: No: Polydipsia Hematologic/Lymphatic: No: Easy Bruising Physical Exam Narrative GENERAL: Well-developed, well-nourished in no apparent distress. Nontoxic appearing. HEAD: Normocephalic, atraumatic. EYES: Pupils equal round and reactive. Extraocular motions intact. No scleral icterus. No injection or drainage. ENT: Nose clear. Throat without erythema, tonsillar hypertrophy or exudate. Uvula midline. Airway patent. NECK: Trachea midline. Supple, nontender, moves head freely. No central bony tenderness or spasm. CARDIOVASCULAR: Regular rate and rhythm without murmurs, gallops, or rubs. RESPIRATORY: Clear to auscultation. Breath sounds equal bilaterally. No wheezes , rales, or rhonchi. GASTROINTESTINAL: Abdomen soft, non-tender, nondistended. No hepato-splenomegaly , or palpable masses. No guarding. EXTREMITIES: No clubbing, cyanosis, or edema. Examination of the left upper extremity reveals soft tissue tenderness over the dorsal surface of the left wrist. The skin is intact. No edema. No pain in the fingers, anatomical snuffbox, distal radius or ulna. No pain in the elbow or shoulder. The right upper extremity as well as the lower extremities are unremarkable. Median/ulnar /radial nerves intact. BACK: Nontender without deformity. No flank tenderness. NEUROLOGICAL: Awake, alert and oriented x 3 .Cranial nerves grossly intact. Motor and sensory grossly within normal limits. Normal speech. Data Data Last Documented VS Vital Signs Date Time Temp Pulse Resp B/P (MAP) Pulse Ox O2 Delivery O2 Flow Rate FiO2 02/01/18 23:08 97.8 71 18 115/77 (90) 100 Orders Orders Ice/Cold Pack (02/01/18 23:11) Wrist, Complete ([id number]) (02/01/18 23:11) Ed Discharge Order (02/02/18 01:08) Splint Or Brace Apply/Monitor (02/02/18 01:08) Naproxen (Naprosyn) (02/02/18 01:15) [facility] Medical Decision Making Medical Screen Exam Complete: Yes Emergency Medical Condition: Yes Medical Record Reviewed: Yes Interpretation(s) Last 24 hours Impressions Wrist X-Ray 02/01/18 [id number] Signed Impressions: Service Date/Time: Friday, February 02, 2018 00:21 - CONCLUSION: Intact left wrist. Phuc Stephens MD Differential Diagnosis MDM: High Differential diagnoses: Fracture, sprain, strain, dislocation, contusion, neurovascular injury Narrative Course X-ray of the left wrist is negative for bony injury. Patient was given Naprosyn 500 mg p.o. Velcro l wrist splint. This is left wrist sprain Diagnosis Primary Impression: Left wrist sprain Patient Instructions: General Instructions Departure Forms: Tests/Procedures, Work Release Special Instructions: No lifting greater than 5 pounds with the right hand 5 days. Additional Instructions: Rest. Splint. Elevation. Ice. Diclofenac. Follow-up with workman's comp within 1 week. Med/Other Pt SpecificInfo: Prescription(s) given Scripts Diclofenac Sodium DR (Diclofenac Sodium DR) 75 Mg Tabdr 75 MG PO BID, #20 TAB 0 Refills Prov: Joy Boyer MD 02/02/18 Disposition: 01 DISCHARGE HOME Condition: Stable Kodi Kaufman Feb 02, 2018 01:15
== END 2018-02-02 01:49 | disposition home or self-care (01) ==
LOC: NEPD 22:10
DX: S63.502A Unspecified sprain of left wrist, initial encounter (principal); W01.0XXA Fall on same level from slipping, tripping and stumbling without subsequent striking against object, initial encounter
CPT/HCPCS: 73110; 99283; L3908